=== PATIENT | female | born 1940 | race Caucasian/White ===

== ENCOUNTER 2021-12-16 15:07 | Emergency (ER) | payer MEDICARE, OTHER ==
[~2021-12-16] VITALS: Ht 160 cm; Wt 62.0 kg
[2021-12-16 15:25] VITALS: BP_SYST 144; BP_SYST 149; BP_SYST 157; BP_DIAS 74; BP_DIAS 80; BP_DIAS 84
--- NOTE | 2021-12-16 15:26 | ED Syncope ---
General Chief Complaint: Dizziness/Syncope Stated Complaint: SYNCOPAL EPISODE Source of Information: Patient, EMS Exam Limitations: No Limitations History of Present Illness Date Seen by Provider: Dec 16, 2021 Time Seen by Provider: 15:12 Initial Comments Patient to the ER by EMS from football game with chief complaint she had a syncopal episode while sitting on the stands. She was lowered to the bleacher. She denies striking her head. She is not on blood thinners. She does not have frequent syncopal episodes. It was cool this morning so she dressed heavy clothing. She says since she got there it started to heat up and is now 85 degrees and she has not been drinking much water just a few sips of her bottle of water. She did not eat lunch. She is not having any pain anywhere except for some pain in her right arm from a fall 2 weeks ago. She says she stumbled going up the stairs then. She has full range of motion of all of her extremities. EMS remarks that she is alert and oriented x4 when they arrived. She is not diabetic. She is comforted by her . She had some nausea at the beginning of the ambulance ride. She states she gets carsick very easily. 4 mg Zofran were given and she is no longer complaining of any nausea. Primary care is at [facility]. Allergies and Home Medications Allergies Coded Allergies: Penicillins (Verified Allergy, Intermediate, 12/16/21) Patient Home Medication List Home Medication List Reviewed: Yes Review of Systems Constitutional: No chills, No diaphoresis EENTM: No ear discharge, No ear pain Respiratory: No cough, No short of breath Cardiovascular: No chest pain, No edema; syncope Gastrointestinal: No abdominal pain, No constipation, No diarrhea Genitourinary: No discharge, No dysuria Musculoskeletal: No back pain, No joint pain All Other Systems Reviewed Negative Unless Noted: Yes Past Vobxprs-Nioldz-Acgzwb Hx Patient Social History Tobacco Use?: No Use of E-Cig and/or Vaping dev: No Physical Exam Vital Signs Vital Signs - First Documented 12/16/21 15:15 Temp 36.6 Pulse 73 Resp 18 B/P (MAP) 157/84 (108) Pulse Ox 96 O2 Delivery Room Air Capillary Refill : Less Than 3 Seconds Height, Weight, BMI Height: '" Weight: lbs. oz. kg; 24.00 BMI Method: General Appearance: No Apparent Distress, WD/WN HEENT: PERRL/EOMI, TMs Normal, Normal ENT Inspection, Pharynx Normal; No Moist Mucous Membranes; Other (Atraumatic head without blevins sign raccoon eyes or hemotympanum) Neck: Full Range of Motion, Normal Inspection, Non Tender Cardiovascular: Regular Rate, Rhythm, No Edema, Normal Peripheral Pulses Respiratory: Lungs Clear, Normal Breath Sounds, No Accessory Muscle Use, No Respiratory Distress Gastrointestinal: Normal Bowel Sounds, No Organomegaly, Non Tender, Soft Extremities: Normal Capillary Refill, Normal Inspection, No Pedal Edema Neurologic/Psychiatric: Alert, Oriented x3 Cranial Nerves: Normal Hearing, Normal Speech, PERRL Coordination/Gait: Normal Finger to Nose Motor/Sensory: No Motor Deficit, No Sensory Deficit Skin: Normal Color, Warm/Dry Progress/Results/Core Measures Results/Orders Lab Results Laboratory Tests Test 12/16/21 15:18 12/16/21 15:37 12/16/21 16:15 Range/Units White Blood Count 6.7 4.3-11.0 10^3/uL Red Blood Count 3.71 L 3.80-5.11 10^6/uL Hemoglobin 11.3 L 11.5-16.0 g/dL Hematocrit 33 L 35-52 % Mean Corpuscular Volume 90 80-99 fL Mean Corpuscular Hemoglobin 31 25-34 pg Mean Corpuscular Hemoglobin Concent 34 32-36 g/dL Red Cell Distribution Width 13.5 10.0-14.5 % Platelet Count 229 130-400 10^3/uL Mean Platelet Volume 9.7 9.0-12.2 fL Immature Granulocyte % (Auto) 0 % Neutrophils (%) (Auto) 48 42-75 % Lymphocytes (%) (Auto) 40 12-44 % Monocytes (%) (Auto) 8 0-12 % Eosinophils (%) (Auto) 2 0-10 % Basophils (%) (Auto) 1 0-10 % Neutrophils # (Auto) 3.2 1.8-7.8 10^3/uL Lymphocytes # (Auto) 2.7 1.0-4.0 10^3/uL Monocytes # (Auto) 0.6 0.0-1.0 10^3/uL Eosinophils # (Auto) 0.1 0.0-0.3 10^3/uL Basophils # (Auto) 0.1 0.0-0.1 10^3/uL Immature Granulocyte # (Auto) 0.0 0.0-0.1 10^3/uL Sodium Level 136 135-145 MMOL/L Potassium Level 3.9 3.6-5.0 MMOL/L Chloride Level 106 98-107 MMOL/L Carbon Dioxide Level 22 21-32 MMOL/L Anion Gap 8 5-14 MMOL/L Blood Urea Nitrogen 13 7-18 MG/DL Creatinine 0.90 0.60-1.30 MG/DL Estimat Glomerular Filtration Rate 64 BUN/Creatinine Ratio 14 Glucose Level 113 H 70-105 MG/DL Calcium Level 8.9 8.5-10.1 MG/DL Corrected Calcium 9.1 8.5-10.1 MG/DL Total Bilirubin 0.5 0.1-1.0 MG/DL Aspartate Amino Transf (AST/SGOT) 16 5-34 U/L Alanine Aminotransferase (ALT/SGPT) 12 0-55 U/L Alkaline Phosphatase 65 40-136 U/L Troponin I < 0.028 <0.028 NG/ML Total Protein 6.2 L 6.4-8.2 GM/DL Albumin 3.7 3.2-4.5 GM/DL Glucometer 94 70-110 MG/DL Urine Color YELLOW Urine Clarity CLEAR Urine pH 6.0 5-9 Urine Specific Penrose 1.015 L 1.016-1.022 Urine Protein TRACE H NEGATIVE Urine Glucose (UA) NEGATIVE NEGATIVE Urine Ketones NEGATIVE NEGATIVE Urine Nitrite NEGATIVE NEGATIVE Urine Bilirubin NEGATIVE NEGATIVE Urine Urobilinogen 0.2 < = 1.0 MG/DL Urine Leukocyte Esterase NEGATIVE NEGATIVE Urine RBC (Auto) NEGATIVE NEGATIVE Urine RBC NONE /HPF Urine WBC NONE /HPF Urine Squamous Epithelial Cells RARE /HPF Urine Crystals NONE /LPF Urine Bacteria NEGATIVE /HPF Urine Casts NONE /LPF Urine Mucus NEGATIVE /LPF Urine Culture Indicated NO My Orders Orders - JAG,CANDIDA J Chest 1 View, Ap/Pa Only (12/16/21 15:20) Cbc With Automated Diff (12/16/21 15:20) Comprehensive Metabolic Panel (12/16/21 15:20) Accucheck Stat ONCE (12/16/21 15:20) Urinalysis (12/16/21 15:20) Orthostatic Vital Signs (Adult (12/16/21 15:20) Troponin I Dorene (12/16/21 15:20) Continuous Ekg Monitoring (12/16/21 15:20) Ekg Tracing (12/16/21 15:20) Vital Signs/I&O 12/16/21 12/16/21 15:15 15:25 Temp 36.6 Pulse 73 73 72 77 Resp 18 B/P (MAP) 157/84 (108) 157/84 (108) 149/74 (99) 144/80 (101) Pulse Ox 96 O2 Delivery Room Air Progress Progress Note #1: Time: 15:17 Progress Note Let her have a liter of fluids and EMS started and reexamine her. Orthostats were negative. We will get an EKG, troponin, basic labs and a urinalysis looking for alternative diagnoses however syncope from the heat exposure seems most likely. Progress Note #2: Time: 16:56 Progress Note Patient is feeling significantly better. She has completed her liter of fluids in order to let her go home. Initial ECG Impression Date: Dec 16, 2021 Initial ECG Impression Time: 15:08 Initial ECG Rate: 70 Initial ECG Rhythm: Normal Sinus Initial ECG Intervals: Normal Initial ECG Impression: Normal Initial ECG Comparisson: No Previous ECG Available Comment Normal sinus rhythm without clinically relevant ST changes. Diagnostic Imaging Diagonstic Imaging: Xray Plain Films/CT/US/NM/MRI: chest Comments [facility]. [place], [place] NAME: KOURTNEY PICKENS [facility] REC#: [id number] PT STATUS: REG ER : 1940 PHYSICIAN: CANDIDA RM MD ADMIT DATE: 12/16/21/ER Signed Date of Exam:12/16/21 CHEST 1 VIEW, AP/PA ONLY INDICATION: Syncope. FINDINGS: The lungs are clear without findings of pneumonia or edema. There is no effusion. There is no pneumothorax. Heart size is appropriate. There is no acute osseous abnormality. IMPRESSION: No radiographic evidence of an acute cardiopulmonary process. Dictated by: Dictated on workstation # [id number] Dict: 12/16/21 1547 Trans: 12/16/21 1554 [facility] [id number] Interpreted by: RUTH WORLEY MD Electronically signed by: RUTH WORLEY MD 12/16/21 1554 Reviewed: Reviewed by Me Departure Impression Primary Impression: Heat syncope, initial encounter Disposition: HOME, SELF-CARE Condition: Stable Departure-Patient Inst. Decision time for Depature: 16:57 Referrals: NO,LOCAL PHYSICIAN (PCP/Family) Primary Care Physician Patient Instructions: Syncope (Fainting) (DC) Add. Discharge Instructions: Drink plenty of fluids and stay out of the heat for the next day or 2. If this becomes a pattern then return to the ER or follow-up with your primary care doctor. If you are having chest pain, shortness of air or other worrisome symptoms then please return to the ER promptly. All discharge instructions reviewed with patient and/or family. Voiced understanding. CANDIDA RM Dec 16, 2021 15:26
[2021-12-16 15:28] LABS: BASOPHILS # (AUTO) 0.1 10^3/uL (0.0-0.1); BASOPHILS % (AUTO) 1 % (0-10); EOSINOPHILS # (AUTO) 0.1 10^3/uL (0.0-0.3); EOSINOPHILS % (AUTO) 2 % (0-10); HEMATOCRIT 33 % (35-52); HEMOGLOBIN 11.3 g/dL (11.5-16.0); LYMPHOCYTES # (AUTO) 2.7 10^3/uL (1.0-4.0); LYMPHOCYTES % (AUTO) 40 % (12-44); MEAN CORPUSCULAR HEMOGLOBIN 31 pg (25-34); MEAN CORPUSCULAR HGB CONC 34 g/dL (32-36); MEAN CORPUSCULAR VOLUME 90 fL (80-99); MEAN PLATELET VOLUME 9.7 fL (9.0-12.2); MONOCYTES # (AUTO) 0.6 10^3/uL (0.0-1.0); MONOCYTES % (AUTO) 8 % (0-12); NEUTROPHILS # (AUTO) 3.2 10^3/uL (1.8-7.8); NEUTROPHILS % (AUTO) 48 % (42-75); PLATELET COUNT 229 10^3/uL (130-400); WHITE BLOOD COUNT 6.7 10^3/uL (4.3-11.0)
[2021-12-16 15:41] LABS: ALBUMIN 3.7 GM/DL (3.2-4.5); CHLORIDE 106 MMOL/L (98-107); POTASSIUM 3.9 MMOL/L (3.6-5.0); SODIUM 136 MMOL/L (135-145)
[2021-12-16 15:42] LABS: CALCIUM 8.9 MG/DL (8.5-10.1)
[2021-12-16 15:43] LABS: GLUCOSE 113 MG/DL (70-105); TOTAL PROTEIN 6.2 GM/DL (6.4-8.2)
[2021-12-16 15:44] LABS: CARBON DIOXIDE 22 MMOL/L (21-32)
[2021-12-16 15:45] LABS: BILIRUBIN,TOTAL 0.5 MG/DL (0.1-1.0)
[2021-12-16 15:47] LABS: ALKALINE PHOSPHATASE 65 U/L (40-136); GFR ESTIMATED 64
[2021-12-16 15:48] LABS: BUN/CREATININE RATIO 14
[2021-12-16 15:50] LABS: ALANINE AMINOTRANSFERASE 12 U/L (0-55)
--- NOTE | 2021-12-16 15:51 | Diagnostic Imaging Report ---
INDICATION: Syncope. FINDINGS: The lungs are clear without findings of pneumonia or edema. There is no effusion. There is no pneumothorax. Heart size is appropriate. There is no acute osseous abnormality. IMPRESSION: No radiographic evidence of an acute cardiopulmonary process. Dictated by: Dictated on workstation # [id number]
[2021-12-16 16:27] LABS: BILIRUBIN,URINE NEGATIVE (NEGATIVE); CLARITY,URINE CLEAR; COLOR,URINE YELLOW; GLUCOSE, URINE (UA) NEGATIVE (NEGATIVE); KETONES,URINE NEGATIVE (NEGATIVE); LEUKOCYTE ESTERASE ,URINE NEGATIVE (NEGATIVE); NITRITE,URINE NEGATIVE (NEGATIVE); PROTEIN,URINE TRACE (NEGATIVE)
[2021-12-16 16:34] LABS: BACTERIA,URINE NEGATIVE /HPF; SQUAMOUS EPITHELIAL CELL,UR RARE /HPF
[2021-12-16 17:16] VITALS: BP 135/80
== END 2021-12-16 17:16 | disposition home or self-care (01) ==
LOC: ER 15:14
DX: T67.1XXA Heat syncope, initial encounter (principal)
CPT/HCPCS: 36415; 71045; 80053; 81000; 82947; 84484; 85025; 93005